=== PATIENT | female | born 1985 | race Caucasian/White ===

== ENCOUNTER → 2020-10-16 09:43 | Outpatient (BNVA) | payer MEDICAID, SELFPAY | PROVIDERS: Visit Provider Obstetrics & Gynecology | DX: Z12.4 Encounter for screening for malignant neoplasm of cervix (principal); N92.1 Excessive and frequent menstruation with irregular cycle | CPT/HCPCS: 84146; 84443; 85027; 88175 ==

== ENCOUNTER → 2020-10-17 09:23 | Outpatient (BNVA) | payer MEDICAID, SELFPAY | PROVIDERS: Visit Provider Obstetrics & Gynecology | DX: R10.2 Pelvic and perineal pain (principal) | CPT/HCPCS: 76830 ==

== ENCOUNTER → 2020-11-26 14:04 | Outpatient (BNVA) | payer MEDICAID, SELFPAY | PROVIDERS: Visit Provider Obstetrics & Gynecology | DX: N92.1 Excessive and frequent menstruation with irregular cycle (principal); D50.0 Iron deficiency anemia secondary to blood loss (chronic) | CPT/HCPCS: 87635 ==

== ENCOUNTER 2020-12-02 06:28 | Day surgery (SDC) | payer MEDICAID, SELFPAY ==
[2020-11-26 11:56] VITALS: BMI 38.7
--- NOTE | 2020-11-26 12:33 | ANES.PREANE2 ---
Pre-Anesthetic Assessment Pre-Anesthetic Assessment: Height/Weight: Height 1.68 m Weight 108.862 kg Proposed Procedure: Operation Date: 12/02/20 09:00 Proposed Procedures p Hysteroscopy w/ Ablation w/ Novasure(Not Applicable) - Jon Kern MD Was Beta Gerald taken within 24 hours: N/A Social: Social History: No alcohol and No tobacco Exam: Pre-Anes Outpt Exam: alert, oriented x 3, clear to auscultation bilaterally and regular rate & rhythm Airway: Submandibular: WNL Cervical ROM: WNL MP: 2 Dentition: Full CV/HEM: CV/HEM: Anemia Metabolic: Metabolic: Morbid obesity Anesthetic Plan: ASA status: 2 Anesthesia: General Risk of > 500 ml blood loss (7ml/kg in children): No PFSH Anesthesia PFSH: Medical History Chronic anemia 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 Surgical History S/P tubal ligation (05/27/16) . [place] [facility] [place]. Family History Father Hyperlipidemia Diabetes Hypertension Grandmother Diabetes Maternal Social History (Updated 11/26/20 @ 11:05 by Jon Kern MD) Smoking and tobacco status: never smoked Alcohol intake: never Substance/Drug Use: never Data Anesthesia Cardiac Studies: No Data to Display
--- NOTE | 2020-12-02 06:45 | W.PM.OPSUD ---
Surgery/Procedure H&P Update DATE OF PROCEDURE: December 02, 2020 DATE H&P PERFORMED: 11/26/20 H&P UPDATE INFORMATION: I have reviewed H&P completed within last 30 days, I have examined patient prior to procedure, No changes to prior documentation and H&[place] is [place] [facility] [place] date indicated PREOP DIAGNOSIS: Menorrhagia, Chronic iron deficiency anemia due to chronic blood loss PLANNED PROCEDURE: Operation Date: 12/02/20 08:00 Proposed Procedures p Hysteroscopy w/ Ablation w/ Novasure(Not Applicable) - Jon Kern MD Related Problem List Diagnoses (1) Menorrhagia: Qualifiers: Menorrhagia type: with irregular cycle Qualified Code(s): N92.1 - Excessive and frequent menstruation with irregular cycle (2) Anemia: Qualifiers: Anemia type: iron deficiency Iron deficiency anemia type: chronic blood loss Qualified Code(s): D50.0 - Iron deficiency anemia secondary to blood loss (chronic)
[2020-12-02 06:56] VITALS: BP 129/93; PULSE 82; RESP 18; TEMP 36.5; O2SAT 97
[2020-12-02 07:04] LABS: OR HCG Qualitative Urine Negative (Negative)
[2020-12-02] MEDS: ketorolac 30 mg/mL INJ IVP (07:10)
[2020-12-02] MEDS: sodium chloride 0.9% 1,000 ML 30 ML IV (07:10)
[2020-12-02 07:16] LABS: Basophils # 0.1 10^3/uL (0.0-0.1); Basophils % 0.7 %; Eosinophils # 0.2 10^3/uL (0.0-0.8); Eosinophils % 2.5 %; Hematocrit 39.1 % (37.0-47.0); Lymphocytes # 2.3 10^3/uL (0.8-4.8); Mean Corpuscular HGB Conc 30.7 g/dL (30.0-36.0); Mean Corpuscular Hemoglobin 24.4 pg (28.0-34.0); Mean Corpuscular Volume 79.6 fL (81-99); Mean Platelet Volume 11.5 fL (7.4-10.4); Monocytes # 0.4 10^3/uL (0.2-0.9); Monocytes % 4.4 %; Neutrophils # 5.83 10^3/uL (1.8-7.7); Neutrophils % 65.9 %; Nucleated Red Blood Cells % 0 %; Platelet Count 290 10^3/cmm (130-400); Red Blood Count 4.91 10^6/uL (4.1-5.3); Red Cell Distribution Width 18.5 % (12.1-15.1); White Blood Count 8.8 10^3/uL (4.0-10.0)
[2020-12-02 08:22] VITALS: BP 108/77; PULSE 84; RESP 20; TEMP 36.2; O2SAT 92
[2020-12-02 08:30] VITALS: BP 126/76; PULSE 82; RESP 12; O2SAT 93
--- NOTE | 2020-12-02 08:32 | P.OP_ITS ---
Operative Report Date of procedure: December 02, 2020 Pre-op Diagnosis: Menorrhagia, Chronic iron deficiency anemia due to chronic blood loss Post-op Diagnosis: Menorrhagia, Chronic iron deficiency anemia due to chronic blood loss Procedure Done: Hysteroscopy with endometrial ablation with NovaSure, Paracervical block with 2% lidocaine with epinephrine Specimens removed/disposition: None Surgeon: Jon Kern Radiologic Tech: None Anesthesia: MAC and Other (Paracervical block) Estimated blood loss (mL): 5 IV fluids (mL): 300 Complications: None Findings: Second-degree uterine prolapse. No palpable masses noted. Normal- appearing endometrial cavity. Brief History: Patient is a 35-year-old female 4, para 3-0-1-3 with an LMP of 11/08/2020 who is status post tubal ligation. She presented to the office with a complaint of heavy, prolonged bleeding. She typically will bleed for 10 to 14 days at a time with irregular timing of the periods. She passes up to half dollar sized clots with the periods. She changes a pad and a tampon at least every hour and will still bleed through to her clothing. She has tried control pills and Mirena IUD in the past without improvement in the bleeding. As a result, she is now presenting for an endometrial ablation. Procedure: The patient was taken to the operating room where IV sedation was started. She was prepped and draped in the usual sterile fashion in the dorsal supine position with legs in Sourav style stirrups. Sequential compression boots had been placed prior to starting the case. Patient had voided just before coming to the operating room. Exam under anesthesia was performed and the patient was noted to have second- degree uterine prolapse. A weighted speculum was placed in the vagina and the cervix was grasped with a single-tooth tenaculum. A paracervical block was performed with a total of 10 mL of 2% lidocaine with epinephrine used. The cervix was serially dilated until a operative hysteroscope could be passed. Crystalloid solution was used as a distention media. The endometrial cavity was inspected and appeared normal. Both tubal ostia were visualized. Using the NovaSure sound, endometrial cavity length was measured at 5.5 cm. The NovaSure device was inserted and device was deployed. The device was moved up and down and left and right until no further with adjustment occurred. Uterine width was measured at 4.8 cm. Settings were entered in the NovaSure machine and wattage was set at 145 Bhatia. Cavity integrity check was performed and integrity confirmed. Device was then activated. Total treatment time was 79 seconds. Device was removed. The tenaculum was removed and there was minimal bleeding from the tenaculum site. Patient tolerated the procedure well. Sponge and needle counts were correct. DRAINS: None POSTOPERATIVE STATUS: The patient was transferred to the recovery room in satisfactory condition DISPOSITION: Discharge to home when criteria was met. FOLLOWUP APPOINTMENT: Followup appointment had been scheduled on 12/17/2020 in my office. MEDICATIONS: She received prescriptions for: Tramadol 50 mg, 1 to 2 tablets every 6 hours as needed for pain, #10, 0 refills May use [id number] ibuprofen as needed for pain.
[2020-12-02 08:35] VITALS: BP 122/79; PULSE 77; RESP 15; TEMP 36.6; O2SAT 95
[2020-12-02 08:37] VITALS: BP 125/79; PULSE 79; RESP 18; O2SAT 94
[2020-12-02 08:55] VITALS: BP 118/79; PULSE 70; RESP 18; O2SAT 96
[2020-12-02] MEDS: TRAMadol 50 mg Tablet PO (09:05)
--- NOTE | 2020-12-02 21:32 | ANE.PACU2 ---
Inpatient post-anesthesia follow up: Airway intact: Yes Vital signs: Temperature 97.8 F Pulse Rate 70 Respiratory Rate 18 Blood Pressure 118/79 Pulse Oximetry 96 Oxygen Delivery Me thod Room Air Oxygen Flow Rate Fraction of Inspir ed Oxygen Hydration adequate: Yes Nausea and vomiting: No Pain level: 1 Mental status: Baseline
== END 2020-12-02 09:21 | disposition home or self-care (01) ==
PROVIDERS: Visit Provider Obstetrics & Gynecology
PROC: 0U598ZZ Destruction of Uterus, Via Natural or Artificial Opening Endoscopic (ICD-10-PCS; CPT 58563; principal; 2020-12-02 08:00)
DX: N92.1 Excessive and frequent menstruation with irregular cycle (principal); D50.9 Iron deficiency anemia, unspecified; D50.0 Iron deficiency anemia secondary to blood loss (chronic); E66.01 Morbid (severe) obesity due to excess calories; Z68.38 Body mass index [BMI] 38.0-38.9, adult
CPT/HCPCS: 58563; 36415; 81025; 84703; 85025; 96374; J1885; J2250; J2704; J3010; J7030

== ENCOUNTER → 2021-01-05 10:27 | Outpatient (BNVA) | payer MEDICAID, SELFPAY | PROVIDERS: Visit Provider Nurse Practitioner | DX: M79.671 Pain in right foot (principal) | CPT/HCPCS: 73630 ==

== ENCOUNTER → 2021-02-18 09:42 | Outpatient (BNVA) | payer MEDICAID, SELFPAY | PROVIDERS: Visit Provider Obstetrics & Gynecology | DX: Z11.52 Encounter for screening for COVID-19 (principal); N92.1 Excessive and frequent menstruation with irregular cycle | CPT/HCPCS: 87635 ==

== ENCOUNTER 2021-02-24 11:01 | Observation (INO) | payer MEDICAID, SELFPAY ==
[2021-02-18 11:14] VITALS: BMI 34.9
[2021-02-18 11:42] LABS: Basophils # 0.1 10^3/uL (0.0-0.1); Basophils % 0.9 %; Eosinophils # 0.1 10^3/uL (0.0-0.8); Eosinophils % 1.7 %; Hematocrit 36.3 % (37.0-47.0); Hemoglobin 11.4 g/dL (11.5-15.3); Lymphocytes # 1.5 10^3/uL (0.8-4.8); Lymphocytes % 21.9 %; Mean Corpuscular HGB Conc 31.4 g/dL (30.0-36.0); Mean Corpuscular Hemoglobin 25.9 pg (28.0-34.0); Mean Corpuscular Volume 82.3 fL (81-99); Mean Platelet Volume 11.3 fL (7.4-10.4); Monocytes # 0.3 10^3/uL (0.2-0.9); Monocytes % 4.5 %; Neutrophils # 4.88 10^3/uL (1.8-7.7); Neutrophils % 70.9 %; Nucleated Red Blood Cells % 0 %; Platelet Count 247 10^3/cmm (130-400); Red Blood Count 4.41 10^6/uL (4.1-5.3); Red Cell Distribution Width 14.6 % (12.1-15.1); White Blood Count 6.9 10^3/uL (4.0-10.0)
--- NOTE | 2021-02-18 12:00 | ANES.PREANE2 ---
Pre-Anesthetic Assessment Pre-Anesthetic Assessment: Height/Weight: Height 1.73 m Weight 104.326 kg Preop Diagnosis: menorrhagia, pelvic pain Proposed Procedure: Operation Date: 02/24/21 07:00 Proposed Procedures p Total Vaginal Hysterectomy [id number] N92.1(Not Applicable) - Whitney Veliz MD s Salpingo-Oophorectomy (Vaginal)(Not Applicable) - Whitney Veliz MD Was Beta Gerald taken within 24 hours: N/A Was Clonidine taken within 24 hours: N/A Social: Social History: No alcohol and No tobacco Exam: Pre-Anes Outpt Exam: alert, oriented x 3, clear to auscultation bilaterally and regular rate & rhythm Airway: Submandibular: WNL Cervical ROM: WNL MP: 2 Dentition: Full CV/HEM: CV/HEM: Anemia Metabolic: Metabolic: Morbid obesity Anesthetic Plan: ASA status: 3 Anesthesia: General Risk of > 500 ml blood loss (7ml/kg in children): No PFSH Anesthesia PFSH: Medical History Chronic anemia 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 Surgical History S/P tubal ligation (05/27/16) . [place] [facility] [place]. Family History Father Hyperlipidemia Diabetes Hypertension Grandmother Diabetes Maternal Social History (Updated 02/18/21 @ 09:18 by Sowmya Dixon LPN) Smoking and tobacco status: never smoked Alcohol intake: never Marital status: Single Number of children: 3 Number of grandchildren: 0 Current occupational status: unemployed Female Reproductive History: Date of last menstrual period: 02/16/21 Data Anesthesia CBC & Chem 7: 02/18/21 11:30 02/18/21 11:30 Other Labs: Laboratory Results - last 48 hr 02/18/21 11:30 WBC 6.9 RBC 4.41 Hgb 11.4 L Hct 36.3 L MCV 82.3 MCH 25.9 L MCHC 31.4 RDW 14.6 Plt Count 247 MPV 11.3 H Neut % (Auto) 70.9 Lymph % (Auto) 21.9 [place] % (Auto) 4.5 Eos % (Auto) 1.7 Baso % (Auto) 0.9 Neut # (Auto) 4.88 Lymph # (Auto) 1.5 [place] # (Auto) 0.3 Eos # (Auto) 0.1 Baso # (Auto) 0.1 Nucleated RBC % (auto) 0 Nucleated RBCs # 0.0 Cardiac Studies: No Data to Display
[2021-02-18 12:05] LABS: Anion Gap 12.8 (5-19); Blood Urea Nitrogen 10 mg/dL (6-20); Calcium 8.2 mg/dL (8.5-10.5); Carbon Dioxide 25 mmol/L (22-29); Chloride 104 mmol/L (98-107); Glomerular Filtration Rate 95.8 mL/min (90-130); Glucose 88 mg/dL (65-115); Osmolality Calculated 284 mOsm/kg (285-295); Potassium 3.8 mmol/L (3.5-5.1); Sodium 138 mmol/L (136-145)
[2021-02-24] VITALS (16 sets, daily range): BP systolic 117–141; BP diastolic 70–93; PULSE 64–116; RESP 16–18; TEMP 36.1–36.8; O2SAT 93–100; BMI 34.9
[2021-02-24 06:13] LABS: OR HCG Qualitative Urine Negative (Negative)
--- NOTE | 2021-02-24 06:46 | P.ANESUD_ITS ---
Pre-Anesthetic Update Pre-Anesthetic Assessment: Date of Surgery/Procedure: 02/24/21 Preop Julianna gnosis: menorrhagia, pelvic pain Proposed Procedure: Operation Date: 02/24/21 07:00 Proposed Procedures p Total Vaginal Hysterectomy [id number] N92.1(Not Applicable) - Whitney Veliz MD s Salpingo-Oophorectomy (Vaginal)(Not Applicable) - Whitney Veliz MD Any changes to Pre-Anesthetic Assessment?: No Labs Last 48hrs: Laboratory Results - last 48 hr 02/24/21 06:12 Urine HCG, Qual Negative Exam: Pre-Anes Outpt Exam: alert, oriented x 3, clear to auscultation bilaterally and regular rate & rhythm Cardiac Studies: No Data to Display
[2021-02-24] MEDS: ketorolac 30 mg/mL INJ IVP ×3 (06:50→23:16)
[2021-02-24] MEDS: gabapentin 300 mg Capsule PO (06:50)
[2021-02-24] MEDS: CELEcoxib 200 mg Capsule 400 MG PO (06:50)
[2021-02-24] MEDS: sodium chloride 0.9% 1,000 ML 30 ML IV (06:56)
[2021-02-24] MEDS: acetaminophen 1,000 MG/100 ML PIGGYBACK 400 MG IV (06:56)
--- NOTE | 2021-02-24 07:58 | W.PM.OPSUD ---
Surgery/Procedure H&P Update DATE OF PROCEDURE: February 24, 2021 DATE H&P PERFORMED: 02/18/21 H&P UPDATE INFORMATION: I have reviewed H&P completed within last 30 days, I have examined patient prior to procedure and No changes to prior documentation PREOP DIAGNOSIS: menorrhagia, pelvic pain PLANNED PROCEDURE: Operation Date: 02/24/21 07:00 Proposed Procedures p Total Vaginal Hysterectomy [id number] N92.1(Not Applicable) - Whitney Veliz MD s Salpingo-Oophorectomy (Vaginal)(Not Applicable) - Whitney Veliz MD
[2021-02-24] MEDS: vasopressin 20 unit/mL INJ INJECTION (10:24)
--- NOTE | 2021-02-24 11:18 | PM.OP ---
Operative Report Date of procedure: February 24, 2021 Pre-op Diagnosis: menorrhagia, pelvic pain Post-op diagnosis: same Post-op Findings: enlarged uterus. Normal appearing ovaries. prior tubal ligation noted Procedure Done: total vaginal hysterectomy, cystoscopy Specimens removed/disposition: uterus Surgeon: Whitney Veliz Anesthesia: General Estimated blood loss (mL): 325 IV fluids (mL): 800 Urine output (mL): 500 Complications: none Condition: stable Disposition: PACU Brief History: The patient has been having menorrhagia and pelvic pain for quite a while. She had an endometrial ablation and the bleeding got worse. She wanted to have a hysterectomy for definitive treatment Procedure: The patient was taken to the operating room where general anesthesia was administered and found to be adequate. She was prepped and draped in the normal sterile fashion in the dorsal lithotomy position in [facility]. A Duran catheter was placed. A weighted speculum was placed into the vagina and the anterior and posterior lip of the cervix was grasped with a Dinh tenaculum. 8 6 mL of dilute Pitressin was injected at the vesicovaginal junction. A circumferential incision was made at the vesicovaginal junction and the vaginal mucosa reflected cephalad. The posterior peritoneum was entered sharply with the Metzenbaum scissors and the long weighted speculum replaced. Using the Alma clamps the uterosacral ligaments were clamped cut and suture-ligated. Then sequentially the uterine arteries and cardinal ligaments were clamped cut and suture-ligated. A single-tooth tenaculum was used to deliver the uterus. The utero-ovarian ligaments were clamped cut and suture-ligated bilaterally and the specimen was removed. The fallopian tubes and ovaries were visualized and found to be normal. Due to the depth of the fallopian tubes, it was impossible to remove them safely. The peritoneum was closed with a pursestring using 2-0 Vicryl. The vaginal cuff was closed with 0 Vicryl in a running locked pattern incorporating the uterosacral ligaments into the lateral aspects of the vaginal cuff. The Duran catheter was removed and the cystoscope advanced into the bladder. The patient was given indigo carmine and bilateral spill was noted. There were no injuries or deficits noted in the bladder. The cystoscope was removed and the Duran was replaced. Vaginal packing was placed for good hemostasis. Tolerated the procedure well. Sponge lap and needle counts were correct x3. She was taken to the recovery room in stable condition.
--- NOTE | 2021-02-24 11:24 | P.PCN_ITS ---
PACU note PACU note: VSS, Good respiratory effort, report to PHARMACEUTICAL LABORATORY TECHNICIAN Post-Anesthesia Exam: awake
--- NOTE | 2021-02-24 11:24 | PM.PACU ---
PACU note PACU note: VSS, Good respiratory effort, report to DECKER OPERATOR Post-Anesthesia Exam: awake
--- NOTE | 2021-02-24 11:25 | SUR.PHASEI ---
PT TO RECOVERY ORAL AIRWAY OUT ON ARRIVAL PT REPOSITIONED SELF TO RT SIDE, BUT DID NOT OPEN EYES, VSS GOOD RESP EFFORT NOTED IV PATENT , MONITOR SR, NO ECTOPY NOTED ON MONITOR. PT WITH VAGINAL PACKING AND SALVATORE PAD, D/I, ABD SOFT.
--- NOTE | 2021-02-24 11:29 | SUR.PHASEI ---
CHILEL PATENT AND DRAINING BLUE URINE TO TUBING AND DRAINAGE BAG .
--- NOTE | 2021-02-24 11:32 | SUR.PHASEI ---
PT AWAKES VERBALIZED NO PAIN OR NAUSEA, PT PLACED ON RA TRIAL, PT QUICKLY BACK TO SLEEP.
[2021-02-24] MEDS: dextrose 5%-lactated ringers 1,000 ML 125 ML IV ×2 (12:03→19:42)
[2021-02-24] MEDS: oxyCODONE-APAP 5-325 mg Tablet PO (13:34)
--- NOTE | 2021-02-24 17:09 | ANE.PACU2 ---
Inpatient post-anesthesia follow up: Airway intact: Yes Vital signs: Temperature 97.7 F Pulse Rate 72 Respiratory Rate 18 Blood Pressure 117/72 Pulse Oximetry 97 Oxygen Delivery Me thod Room Air Oxygen Flow Rate 8 Fraction of Inspir ed Oxygen Hydration adequate: Yes Nausea and vomiting: No Pain level: 2 Mental status: Baseline
[2021-02-24] MEDS: docusate sodium 100 mg Capsule PO (17:49)
[2021-02-24] MEDS: HYDROcodone-acetaminophen 5-325 mg Tablet PO (19:07)
[2021-02-25 02:00] VITALS: BP 121/82; PULSE 103; RESP 16; O2SAT 95
[2021-02-25] MEDS: HYDROcodone-acetaminophen 5-325 mg Tablet PO (02:16)
[2021-02-25] MEDS: dextrose 5%-lactated ringers 1,000 ML 125 ML IV (04:15)
[2021-02-25 06:00] VITALS: BP 124/89; PULSE 105; RESP 16
[2021-02-25 06:10] LABS: Hematocrit 33.3 % (37.0-47.0); Hemoglobin 10.5 g/dL (11.5-15.3); Mean Corpuscular HGB Conc 31.5 g/dL (30.0-36.0); Mean Corpuscular Hemoglobin 25.9 pg (28.0-34.0); Mean Platelet Volume 11.2 fL (7.4-10.4); Platelet Count 284 10^3/cmm (130-400); Red Blood Count 4.06 10^6/uL (4.1-5.3); Red Cell Distribution Width 14.2 % (12.1-15.1); White Blood Count 10.8 10^3/uL (4.0-10.0)
--- NOTE | 2021-02-25 08:08 | P.DS_ITS ---
Discharge Providers Date of Admission: 02/24/21 11:01 Date of Discharge: February 25, 2021 Attending Provider at Admission: Whitney Veliz MD Attending Provider at Discharge: Whitney Veliz MD Diagnoses at Discharge Discharge Diagnosis (1) Postoperative state: Status: Acute Reason for Visit Reason for Visit: Menorrhagia Hospital Course Hospital Course The patient was admitted for surgery. She did well postoperatively. On POD#1. She had her cordova catheter and vaginal packing removed. She was able to ambulat e, tolerating a regular diet and her pain was well controlled. She was ready for discharge. Physical Exam Const: COMMON NORMALS: no acute distress, average body habitus, patient oriented x3 and no limitations GENERAL APPEARANCE: cooperative, comfortable and well kempt ORIENTATION/CONSCIOUSNESS: Yes awake, Yes oriented to person, Yes oriented to place and Yes oriented to time GI: COMMON NORMALS: Soft to palpation and non-tender PALPATION: Yes Soft to palpation : COMMON NORMALS: Yes normal external appearance and Yes normal appearance of the vagina EXTERNAL FEMALE EXAM: Yes other (packing removed) Neuro: COMMON NORMALS: patient oriented x3 SENSORIUM/ORIENTATION: Yes oriented to person, Yes oriented to place and Yes oriented to time Psych: APPEARANCE: Yes well kempt Urinary Catheter Management^: Cordova: Cath Placed During This Visit: yes, but has since been removed by the nurse Reason for Continuing Indwelling Catheter: Decision to DC Catheter Urinary Catheter Date of Insertion: 02/24/21 Urinary Catheter Time of Insertion: 09:40 Date Urinary Catheter Removed: 02/25/21 Time Urinary Catheter Discontinued: 06:00 Discharge Data Data Completed and Pending: Pending at discharge Category Date Time Status ES surgery / GI i mages Routine Exams 02/24/21 08:35 Ordered Pathology: Surgic al [PTH] Routine Pth 02/24/21 10:51 Received Labs from last 24 hours 02/25/21 06:00 WBC 10.8 H RBC 4.06 L Hgb 10.5 L Hct 33.3 L MCV 82.0 MCH 25.9 L MCHC 31.5 RDW 14.2 Plt Count 284 MPV 11.2 H Vitals: Last Vital Signs Temp 98.2 F 02/24/21 22:21 Pulse 105 H 02/25/21 06:00 Resp 16 02/25/21 06:00 BP 124/89 02/25/21 06:00 Pulse Ox 95 02/25/21 02:00 Discharge Plan Discharge Patient Disposition: Home Condition: Stable Prescriptions: New hydrocodone-acetaminophen 5-325 mg Tablet 1 tab PO Q4H PRN (Reason: LITTLE DISCOMFORT TO MILD) Qty: 20 RF: 0 DOK 100 mg Capsule 100 mg PO BID Qty: 60 RF: 0 Continued ferrous sulfate 325 mg (65 mg iron) tablet 325 mg PO BID Qty: 60 RF: 2 Discharge Orders: Discharge Order (Routine); Ordered 02/25/21 Ordered By: Whitney Veliz Referrals: Whitney Veliz MD [Physician] - 03/05/21 7:45 am (Your 2 week appointment is scheduled for 03/05/2021 at 7:45 am. Your 6 week appointment is scheduled for 03/30/2021 at 10:45 am.) Patient Instructions: Vaginal Hysterectomy (DC), Postoperative Bleeding (DC), OB Discharge Report, Opioid Safety Discharge Attestations Time Spent in Discharge Care*: less than 30 min Quality Metrics Clinical Quality Measures During this hospital stay, did patient experience: None Coding Level of Care Code Acute Chg FW DC note Diagnoses Postoperative state Z98.890
[2021-02-25] MEDS: docusate sodium 100 mg Capsule PO (10:12)
[2021-02-25] MEDS: ibuprofen 800 mg tablet PO (10:12)
[2021-02-25 10:15] VITALS: BP 117/77; PULSE 98; RESP 16; TEMP 36.7; O2SAT 95
== END 2021-02-25 10:15 | disposition home or self-care (01) ==
LOC: OBGYN 11:02
PROVIDERS: Anesthesiology; Admitting Provider Obstetrics & Gynecology; Visit Provider Obstetrics & Gynecology
PROC: (CPT 58260; principal; 2021-02-24 07:00)
PROC: 0TJB8ZZ Inspection of Bladder, Via Natural or Artificial Opening Endoscopic (ICD-10-PCS; CPT 52000; 2021-02-24 07:00)
DX: N92.1 Excessive and frequent menstruation with irregular cycle (principal); R10.2 Pelvic and perineal pain; E66.01 Morbid (severe) obesity due to excess calories; Z68.35 Body mass index [BMI] 35.0-35.9, adult
CPT/HCPCS: 58260; 36415; 80048; 81025; 84703; 85025; 85027; 88307; 96365; 96374; G0378; J0690; J1100; J1885; J2405; J2704; J2710; J3010; J3490; J7030

== ENCOUNTER 2021-03-05 06:00 | Outpatient (CLI) | payer MEDICAID, SELFPAY | END 2021-03-05 06:01 | disposition home or self-care (01) | LOC: LAB 02-11 14:19 | PROVIDERS: Visit Provider Obstetrics & Gynecology | DX: Z98.890 Other specified postprocedural states (principal) | CPT/HCPCS: 80053; 82150; 83690; 85025 ==

== ENCOUNTER → 2022-04-22 11:24 | Outpatient (BNVA) | payer MEDICAID, SELFPAY | PROVIDERS: Visit Provider Registered Nurse Neonatal Intensive Care | DX: J02.9 Acute pharyngitis, unspecified (principal) | CPT/HCPCS: 87880 ==

== ENCOUNTER → 2023-10-28 18:33 | Outpatient (BNVA) | payer MEDICAID, SELFPAY | PROVIDERS: Visit Provider Nurse Practitioner | DX: J02.9 Acute pharyngitis, unspecified (principal) | CPT/HCPCS: 87880 ==